=== PATIENT | female | born 1940 | race Caucasian/White ===

== ENCOUNTER → 2018-04-23 | Day surgery (SDC) | payer OTHER ==
[~2018-04-23] MED LIST: COLACE100 MG PO; LEVOTHYROXINE50 MCG PO; METOPROLOL PO; OMEPRAZOLE20 M1 PO; PERCOCET 5-3251 EACH PO; PRAVASTATIN SOD20 MG PO; VASOFLEX D1 CA1 EACH PO
== END | disposition home or self-care (01) ==
LOC: ADM 04-21 09:15 → CIR.AMB 08:36
DX: K62.4 Stenosis of anus and rectum (principal)

== ENCOUNTER 2020-04-01 17:35 | Inpatient (IN) | payer OTHER ==
[~2020-04-01] VITALS: Ht 157.5 cm; Wt 63.5 kg
--- NOTE | 2020-04-01 17:47 | NUR ---
PTE REFIERE DOLOR EN AREA DEL ANO Y [place] SE PAXTON S/V YSE UBIAC EN AREA DE OBSERVACION
--- NOTE | 2020-04-01 18:07 | NUR ---
MRS. MACK EDUCA A PTE SOBRE TX MEDICO ESTA REFIERE ENTENDER. SE PAXTON MUESTRAS DE LAB UTILIZANDO MEDDIAS ASEPTICAS, SE COLOCA H/L A PTE EL CIUAL SENEUCNETRA PATENTE Y LORENE DE EDEMA. SE COLOCA IV FLUIDS A PTE Y MEDICAMENTOS, PTE TOLERA LOS MISMOS. SE NOTIFICA ESTUDIO DE CT PENDIENTEA REALIZAR.
--- NOTE | 2020-04-02 02:08 | NUR ---
SE RECIBE FEMINA ALERTA Y ORIENTADA POR EDMAR ESFERAS, EN ANGELA CON BARANDAS SEGURAS Y ELEVADAS. AREA DE VENOPUNCION LORENE DE EDEMA O ENROJECIMIENTO. RECIBIENDO MEDICAMENTOS ORDENADOS. SE MANTIENE EN OBSERVACION POR CAMBIOS.
--- NOTE | 2020-04-02 08:00 | NUR ---
SE RECIBE PTE ALERTA Y CONCIENTE POR 3 EN ANGELA CON BARANDAS ELEVADA Y TIMBRE ACCESIBLE NO PRESENTA DOLOR AL MOMENTO SE OSBERVA VENOPUNCION PATENTE Y LORENE DE EDEMA PTE SE MANTIENE EN OBSERVACION Y BAJO TRATAMIENTO. EN ESPERA DEL DR LISSET HEART
[2020-04-03] MEDS ORDERED: METOPROLOL SUCC25 MG (08:07)
[2020-04-05] MEDS ORDERED: METRONIDAZOLE500 MG PO (11:44)
[2020-04-05] MEDS ORDERED: CIPRO500 MG PO (11:44)
[2020-04-05] MEDS ORDERED: INTESTINEX680 M1 PO (11:45)
== END 2020-04-05 12:00 | disposition home or self-care (01) | DRG 392 ==
LOC: ER 17:35 → SURH 04-02 13:43 → SEC-K 04-02 13:43 → SURH 04-02 15:17
PROVIDERS: ADMIT Internal Medicine; ATTEND Internal Medicine
PROC: BW21ZZZ Computerized Tomography (CT Scan) of Abdomen and Pelvis (ICD-10-PCS; principal; 2020-04-01)
PROC: 02HV33Z Insertion of Infusion Device into Superior Vena Cava, Percutaneous Approach (ICD-10-PCS; 2020-04-04)
DX: K57.32 Diverticulitis of large intestine without perforation or abscess without bleeding (principal); K60.1 Chronic anal fissure; K62.4 Stenosis of anus and rectum; K62.89 Other specified diseases of anus and rectum; K64.5 Perianal venous thrombosis; Z20.828 Contact with and (suspected) exposure to other viral communicable diseases

== ENCOUNTER 2020-06-15 10:27 | Day surgery (SDC) | payer OTHER ==
[~2020-06-15 10:27] MED LIST changes: +CIPRO500 MG PO; +INTESTINEX680 M1 PO; +METOPROLOL SUCC25 MG; +METRONIDAZOLE500 MG PO
[2020-06-15] MEDS ORDERED: COLACE100 MG PO (15:11)
[2020-06-15] MEDS ORDERED: PERCOCET 5-3251 EACH PO (15:11)
== END 2020-06-15 20:25 | disposition home or self-care (01) ==
LOC: CIR.AMB 10:27
PROVIDERS: ATTEND Surgery
DX: K64.8 Other hemorrhoids (principal); K64.4 Residual hemorrhoidal skin tags; Z20.828 Contact with and (suspected) exposure to other viral communicable diseases

== ENCOUNTER 2022-07-31 09:30 | Inpatient (IN) | payer OTHER ==
[~2022-07-31] VITALS: Ht 154.9 cm; Wt 0.5 kg
[2022-07-31] MEDS ORDERED: SYNT PO (14:09)
[2022-07-31] MEDS ORDERED: VASOF PO (14:10)
[2022-07-31] MEDS ORDERED: [UNRECOGNIZED DRUG - OTHER] PO (14:10)
[2022-07-31] MEDS ORDERED: FLUTI IH (14:11)
[2022-08-07] MEDS ORDERED: FLONASE16 GM (11:14)
[2022-08-07] MEDS ORDERED: OMEPRAZOLE40 MG (11:14)
[2022-08-07] MEDS ORDERED: CRESTOR5 MG (11:15)
[2022-08-07] MEDS ORDERED: VASOFLEX TABLE1 EACH (11:16)
[2022-08-08] MEDS ORDERED: NEURONTIN300 MG PO (12:31)
[2022-08-08] MEDS ORDERED: INTESTINEX680 M1 PO (12:31)
[2022-08-08] MEDS ORDERED: PAIN RELIEVER500 MG PO (12:31)
== END 2022-08-08 14:13 | disposition home or self-care (01) | DRG 330 ==
LOC: O/R 08-05 06:00 → SURG 08-05 06:00 → SURH 08-05 09:30 → SURG 08-05 13:59 → SURH 08-05 15:00 → SURG 08-08 14:13
PROVIDERS: ADMIT Surgery; ATTEND Surgery
PROC: 0DTJ4ZZ Resection of Appendix, Percutaneous Endoscopic Approach (ICD-10-PCS; 2022-08-05)
PROC: 0DTN4ZZ Resection of Sigmoid Colon, Percutaneous Endoscopic Approach (ICD-10-PCS; principal; 2022-08-05 15:00)
DX: K57.20 Diverticulitis of large intestine with perforation and abscess without bleeding (principal); K55.1 Chronic vascular disorders of intestine

== ENCOUNTER 2023-03-18 05:20 | Day surgery (SDC) | payer OTHER ==
[2023-03-12 08:29] LABS: HEMATOCRIT 42.6 % (36.0-45.00); HEMOGLOBIN 13.6 g/dL (12.0-15.00); MEAN CELL VOLUME 81.1 fL (80.00-100.00); MEAN CORPUSCULAR HEMOGLOBIN 25.9 pg (27.00-32.0); MEAN CORPUSCULAR HGB CONC 31.9 g/dl (32.0-36.0); PLATELET COUNT 326 K/uL (150-450); RED BLOOD COUNT 5.25 M/uL (4.00-6.00); RED CELL DISTRIBUTION WIDTH 14.8 % (11.5-14.5)
[2023-03-12 09:14] LABS: INR 0.98; PARTIAL THROMBOPLASTIN TIME 25.5 SECONDS (22.0-34.0); PROTHROMBIN TIME 10.3 SECONDS (9.0-11.5)
[2023-03-12 09:16] LABS: ALBUMIN 4.3 gm/dL (3.4-5.0); BILIRUBIN TOTAL 0.38 mg/dL (0.3-1.2); CALCIUM 9.8 mg/dL (8.5-10.1); CREATININE SERUM 0.73 mg/dL (0.55-1.02); GFR 76.14; GLOBULINA 3.5 G/DL (2.4-3.5); POTASSIUM 4.82 mEq/L (3.5-5.1); TOTAL PROTEIN 7.8 gm/dL (6.4-8.2)
[2023-03-12 09:31] LABS: URINE APPEARANCE Clear; URINE BILIRRUBIN Negative (NEGATIVE); URINE BLOOD Negative; URINE COLOR Yellow; URINE GLUCOSE Negative (NEGATIVE); URINE LEUKOCYTE Negative; URINE NITRATE Negative; URINE PROTEIN Negative (NEGATIVE); URINE UROBILINOGEN 0.2 E.U./dl
[2023-03-12 09:33] LABS: URINE RBC 4.5 uL (0.0-20.8)
[2023-03-12 09:39] LABS: URINE BACTERIA 2.5 uL (0.0-1933); URINE EPITHELIAL CELLS 0.3 uL (0.0-38.8); URINE WBC 0.1 uL (0.0-23.2)
[~2023-03-18] VITALS: Ht 152.4 cm; Wt 54.4 kg
[~2023-03-18 05:20] MED LIST changes: +BREO ELLIPTA 21 EACH IH; +CRESTOR5 MG; +FLONASE16 GM; +FLUTI IH; +NEURONTIN300 MG PO; +OMEPRAZOLE40 MG; +PAIN RELIEVER500 MG PO; +SYNT PO; +VASOF PO; +VASOFLEX TABLE1 EACH; +[UNRECOGNIZED DRUG - OTHER] PO
== END 2023-03-18 13:45 | disposition home or self-care (01) ==
LOC: CIR.AMB 05:20
PROVIDERS: ATTEND Otolaryngology Otology & Neurotology
DX: H66.92 Otitis media, unspecified, left ear (principal); H72.92 Unspecified perforation of tympanic membrane, left ear; H61.812 Exostosis of left external canal; Z20.822 Contact with and (suspected) exposure to COVID-19

== ENCOUNTER 2023-05-07 07:10 | Emergency (ER) | payer OTHER ==
[~2023-05-07] VITALS: Ht 167.6 cm; Wt 65.8 kg
[2023-05-07 09:40] LABS: HEMATOCRIT 39.7 % (36.0-45.00); HEMOGLOBIN 13.1 g/dL (12.0-15.00); MEAN CORPUSCULAR HEMOGLOBIN 26.7 pg (27.00-32.0); PLATELET COUNT 329 K/uL (150-450); RED BLOOD COUNT 4.91 M/uL (4.00-6.00); RED CELL DISTRIBUTION WIDTH 14.8 % (11.5-14.5)
[2023-05-07 10:28] LABS: CALCIUM 9.8 mg/dL (8.5-10.1); CREATININE SERUM 0.71 mg/dL (0.55-1.02); GFR 78.62; POTASSIUM 4.31 mEq/L (3.5-5.1)
== END 2023-05-07 15:02 | disposition home or self-care (01) ==
LOC: ER 07:11
DX: K59.01 Slow transit constipation (principal); R10.32 Left lower quadrant pain; K57.30 Diverticulosis of large intestine without perforation or abscess without bleeding
CPT/HCPCS: 36415; 74177; 99284; Q9965